=== PATIENT | female | born 1970 ===

== ENCOUNTER 2018-09-24 15:57 | Outpatient (CLI) | payer OTHER | END 2018-09-24 15:58 | disposition home or self-care (01) | LOC: C.LAB 15:57 | DX: R07.9 Chest pain, unspecified (principal) ==

== ENCOUNTER 2018-10-31 08:02 | Day surgery (SDC) | payer OTHER ==
[2018-10-30 15:21] VITALS: BMI 23.9
[2018-10-31] MEDS ORDERED: Lactated Ringer's 500 ML IV SCH (09:15)
[2018-10-31] MEDS ORDERED: Propofol 10 mg/ml Inj (20 ML) ONE ×2 (09:27)
[2018-10-31 10:39] VITALS: BP 123/67; PULSE 48; RESP 18; TEMP 98; O2SAT 99
== END 2018-10-31 10:35 | disposition home or self-care (01) ==
LOC: C.ENDO 08:02
PROVIDERS: ATTEND Internal Medicine Gastroenterology
DX: K44.9 Diaphragmatic hernia without obstruction or gangrene (principal); K29.70 Gastritis, unspecified, without bleeding; K21.9 Gastro-esophageal reflux disease without esophagitis
CPT/HCPCS: 43239; 84703; 88305; 88313; 88342; J2704; J7120

== ENCOUNTER 2018-12-14 08:19 | Outpatient (CLI) | payer OTHER | END 2018-12-14 08:20 | disposition home or self-care (01) | LOC: C.LAB 08:19 | DX: L40.0 Psoriasis vulgaris (principal); L40.50 Arthropathic psoriasis, unspecified; Z79.899 Other long term (current) drug therapy ==

== ENCOUNTER 2018-12-21 08:00 | Outpatient (CLI) | payer OTHER | END 2018-12-21 08:01 | disposition home or self-care (01) | LOC: C.LAB 08:00 | DX: L40.0 Psoriasis vulgaris (principal) ==

== ENCOUNTER 2019-01-14 10:15 | Outpatient (CLI) | payer OTHER | END 2019-01-14 10:16 | disposition home or self-care (01) | LOC: C.LAB 10:15 | DX: L40.0 Psoriasis vulgaris (principal); Z79.899 Other long term (current) drug therapy ==